=== PATIENT | male | born 1975 | race American Indian/Alaskan Native ===

== ENCOUNTER 2018-09-01 16:38 | Emergency (ER) | payer SELFPAY ==
--- NOTE | 2018-09-01 17:01 | Event Note ---
ED Screening Note Date of service: 09/01/18 Time: 16:58 ED Screening Note: This is a 43 y.o. M. that presents to the ER with pain to right hip s/p fall 1 hour [employer]. 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 He misstep and fell back landing on 4 steps. This initial assessment/diagnostic orders/clinical plan/treatment(s) is/are subject to change based on patients health status, clinical progression and re- assessment by fellow clinical providers in the ED. Further treatment and workup at subsequent clinical providers discretion. Patient/guardian urged not to elope from the ED as their condition may be serious if not clinically assessed and managed. Initial orders include: XR right hip
--- NOTE | 2018-09-01 17:45 | XRay Report ---
RIGHT HIP 2 VIEWS INDICATION / CLINICAL INFORMATION: Fell off stairs with right hip pain. COMPARISON: None available. FINDINGS: BONES / JOINT(S): The hip and SI joint spaces are well-maintained. There is no evidence of fracture o r dislocation. SOFT TISSUES: No significant abnormality. ADDITIONAL FINDINGS: None. IMPRESSION: No acute abnormality. Signer Name: Bj Rose MD Signed: 09/01/2018 5:40 PM Workstation Name: [id number]
[2018-09-01] MEDS ORDERED: NORCO 5/325 PO ONE (18:08)
[2018-09-01] MEDS ORDERED: CATAPRES PO ONE (18:29)
--- NOTE | 2018-09-01 18:29 | Emergency Department Report ---
HPI - General Chief Complaint: Back Pain/Injury Time Seen by Provider: 09/01/18 16:58 - HPI HPI: Patient is a 43-year-old male comes to the ER after falling down stairs an hour prior to arrival. He is complaining of right hip pain. He is ambulatory. Bl ood pressure noted to be elevated on arrival to the emergency room. Patient has no focal deficit. He is alert and oriented 4. Fall was mechanical in nature and ground level. no loc. no other injury no chest pain no sob ED Past Medical Hx - Past Medical History Hx Hypertension: Yes - Surgical History Past Surgical History?: No - Family History Family history: no significant - Social History Smoking Status: Light Tobacco Smoker Substance Use Type: None - Medications Home Medications: Home Medications Medication Instructions Recorded Confirmed Last Taken Type Ibuprofen [Motrin] 800 mg PO Q8HR PRN #30 tablet 09/01/18 Unknown Rx ED Review of Systems ROS: Stated complaint: FELL DOWN SOME STAIRS/VINCENT INJURY Other details as noted in HPI Comment: All other systems reviewed and negative Physical Exam - Physical Exam Vital Signs: Vital Signs 09/01/18 16:58 Temperature 98 F Pulse Rate 92 H Respiratory 20 Rate Blood Pressure 196/126 O2 Sat by Pulse 98 Oximetry Physical Exam: alert and oriented no focal def. no cp no sob fall mechanical co r hip pain ambulating s1s2 lungs cta abd snt dp plus 2 b neg straight leg raise ED Course Vital Signs 09/01/18 16:58 Temperature 98 F Pulse Rate 92 H Respiratory 20 Rate Blood Pressure 196/126 O2 Sat by Pulse 98 Oximetry ED Medical Decision Making - Radiology Data Radiology results: report reviewed, image reviewed - Medical Decision Making xray neg ambulatory medicated for pain bp elevated clon. po hydral IV dc home with dc plan of care including pcp follow up for bp. no cp. no sob. no headache. Vital Signs 09/01/18 16:58 Temperature 98 F Pulse Rate 92 H Respiratory 20 Rate Blood Pressure 196/126 O2 Sat by Pulse 98 Oximetry Vital Signs 09/01/18 09/01/18 09/01/18 16:58 18:50 20:26 Temperature 98 F Pulse Rate 92 H 86 85 Respiratory 20 Rate Blood Pressure 196/126 198/146 185/123 Blood Pressure [Right] O2 Sat by Pulse 98 Oximetry 09/01/18 21:18 Temperature Pulse Rate 86 Respiratory 16 Rate Blood Pressure Blood Pressure 128/59 [Right] O2 Sat by Pulse 98 Oximetry - Differential Diagnosis ro fx Critical care attestation.: If time is entered above; I have spent that time in minutes in the direct care of this critically ill patient, excluding procedure time. ED Disposition Clinical Impression: HTN (hypertension), Accident due to mechanical fall without injury, Contusion, hip Disposition: TO HOME OR SELFCARE Is pt being admited?: No Does the pt Need Aspirin: No Condition: Stable Instructions: Contusion in Adults (ED), Hypertension (ED) Additional Instructions: alternate warm and cold compresses meds as ordered diet and activity as tolerated monitor your BP it was elevated today in ER see PCP this week referral below follow up with ortho MD if your hip pain persists referral below. Prescriptions: Ibuprofen [Motrin] 800 mg PO Q8HR PRN #30 tablet PRN Reason: Pain , Severe (7-10) Referrals: RAFY PATEL MD [Staff Physician] - 3-5 Days ERMIAS ELIZABETH MD [Staff Physician] - 3-5 Days Time of Disposition: 18:34
[2018-09-01] MEDS ORDERED: TORADOL IM ONE (18:30)
[2018-09-01] MEDS ORDERED: FLEXERIL PO ONE (20:09)
[2018-09-01] MEDS ORDERED: TYLENOL PO ONE (20:09)
[2018-09-01] MEDS ORDERED: APRESOLINE IV ONE (20:10)
[2018-09-01] MEDS ORDERED: DECADRON IV ONE (20:11)
[2018-09-01] MEDS ORDERED: MORPHINE IV ONE (20:11)
[2018-09-01] MEDS ORDERED: MORPHINE ONE (20:14)
[2018-09-01 21:20] VITALS: BP 128/59
== END 2018-09-01 21:18 | disposition home or self-care (01) ==
LOC: ED 16:38
DX: S70.01XA Contusion of right hip, initial encounter (principal); I10 Essential (primary) hypertension; F17.200 Nicotine dependence, unspecified, uncomplicated; W19.XXXA Unspecified fall, initial encounter; Y93.89 Activity, other specified; Y92.89 Other specified places as the place of occurrence of the external cause; Y99.8 Other external cause status
CPT/HCPCS: 73502; 96372; 96374; 96375; 99283; J0360; J1100; J1885; J2270